=== PATIENT | male | born 1995 | race Caucasian/White ===

== ENCOUNTER 2017-10-06 14:51 | Inpatient (IN) | payer OTHER ==
--- NOTE | 2017-10-06 14:49 | EDPHY ---
H & P HPI/ROS: CHIEF COMPLAINT: Altered mental status HISTORY OF PRESENT ILLNESS: The patient is a 22 y/o male arriving via [facility] as a LTA, in a C-collar for altered mental status after a ski accident. [employer] hide and skin classer found the patient wearing a helmet, down near a tree. The accident was unwitnessed. He appeared to have right wrist pain and he was placed in a right arm splint for this pain. There is blood in his right ear and a laceration behind that ear. It is unclear if the blood is solely from the laceration. EMS was able to wake the patient by verbal and painful stimuli. 25mcg Fentanyl and 4mg Zofran administered while en route to the ED. Patient's mother provided past medical history. REVIEW OF SYSTEMS: A ten point review of systems was performed and is negative with the exception of the items mentioned in the HPI. Past medical history: 1. Childhood asthma 2. No history of head injury. Past surgical history: Denies Family history: Denies Social history: Works in [place], parents live in [place] General: Cervical collar in place. Lani Coma Score is 10. Head: Normocephalic/atraumatic. No Diamond's sign. No raccoon eyes. Neck: Trachea is midline. Nexus criteria are positive (midline tenderness, and focal neurologic deficits noted). Cervical collar left in place. Eyes: PERRLA. EOMI. No subconjunctival hemorrhage. Ears nose and throat: Linear laceration behind behind right pinna. 0.5cm linear laceration inside right pinna. Left tympanic membrane normal. Unable to visualize right tympanic membrane. Nares are patent and without clotted nasal blood. No dental injury or malocclusion. Airway is patent. Lungs: No rib tenderness, crepitus, or subcutaneous emphysema. Breath sounds are equal and audible bilaterally. No wheezes, rales, or rhonchi. Cardiac: Heart has regular rate and rhythm without murmur, rub, or gallop. Abdomen: Soft, nontender, and nondistended. No guarding or rebound. Bowel sounds are present. Back: No vertebral tenderness. No step-off. Skin: No ecchymoses. Skin is warm and dry. Extremities: Right wrist tenderness. Pelvis is stable. Hips are nontender. Pulses: 2+ femoral and dorsalis pedis pulses bilaterally. Neuro: Eye opening to voice. Incomprehensible words. Localizes pain. GCS 10. PERRL. Moving all 4 extremities equally. Constitutional: Initial Vital Signs Temperature (C) 36.4 C 10/06/17 15:00 Heart Rate 68 10/06/17 15:00 Respiratory Rate 16 10/06/17 15:00 Blood Pressure 137/74 H 10/06/17 15:00 O2 Sat (%) 96 10/06/17 15:00 O2 Delivery Mode Room Air Allergies/Adverse Reactions: No Known Allergies Allergy (Verified 10/06/17 16:25) Home Medications: Medication Instructions Recorded NK [No Known Home Meds] 10/06/17 Medical Decision Making - Diagnostics Imaging Results: Imaging Impressions Cervical Spine CT 10/06/17 14:56 Impression: 1. No evidence for acute intracranial abnormality. 2. Mild nonspecific fluid in the right mastoid air cells. No definite fracture through the mastoid. Fluid in the right external auditory canal. 3. Air-fluid levels in the left maxillary and left sphenoid sinus. A definite fracture is not visualized or this could be secondary to sinusitis. CT Cervical Spine Without Contrast History: Trauma. Technique: 1.5 mm helical images were obtained of the cervical spine without contrast. Multiplanar reformation was performed. Radiation dose reduction technique was utilized. Findings: There is an ununited posterior arch of C1, as a normal variant. No evidence for a cervical spine fracture. No significant spondylolisthesis. No evidence for prevertebral soft tissue swelling. No significant spinal canal or neural foraminal encroachment. Impression: No evidence for a cervical spine fracture. Results discussed with Dr. Jailyn Flynn at [address] 10/06/17 14:56 Impression: 1. No evidence for acute intracranial abnormality. 2. Mild nonspecific fluid in the right mastoid air cells. No definite fracture through the mastoid. Fluid in the right external auditory canal. 3. Air-fluid levels in the left maxillary and left sphenoid sinus. A definite fracture is not visualized or this could be secondary to sinusitis. CT Cervical Spine Without Contrast History: Trauma. Technique: 1.5 mm helical images were obtained of the cervical spine without contrast. Multiplanar reformation was performed. Radiation dose reduction technique was utilized. Findings: There is an ununited posterior arch of C1, as a normal variant. No evidence for a cervical spine fracture. No significant spondylolisthesis. No evidence for prevertebral soft tissue swelling. No significant spinal canal or neural foraminal encroachment. Impression: No evidence for a cervical spine fracture. Results discussed with Dr. Jailyn Flynn at [address] 10/06/17 14:57 Impression: Patchy opacification in the right lung with ground-glass opacity. With history of trauma this could be pulmonary contusion. No evidence for pleural effusion or pneumothorax. Consideration could also be made for nonspecific pneumonitis. CT Thoracic Spine With IV Contrast History: Trauma. Technique: 1.5 helical images were obtained of the thoracic spine postintravenous contrast with 90 mL Isovue-300 contrast. Multiplanar reformation was performed. Findings: A couple of degenerative Schmorl's nodes are seen in the endplates of several thoracovertebral bodies. No evidence for acute fracture. No significant spondylolisthesis. No significant spinal canal or neural foraminal encroachment. Impression: No evidence for thoracic spine fracture. Results called to Dr. Jailyn Flynn at [address] 10/06/17 14:57 Impression: Grade 2 to grade 3 laceration in the midpole anteriorly right kidney. Perirenal hematoma. CT Lumbar Spine With IV Contrast History: Trauma. Technique: 1.5 mm helical images were obtained of the lumbar spine postintravenous contrast with 90 mL Isovue-300 contrast. Dedicated reformatted imaging was obtained of the lumbar spine. Radiation dose reduction technique was utilized. Findings: There is bilateral spondylolysis at L5 with sclerosis and cortical margins indicating chronicity. There is grade 1 anterior spondylolisthesis of L5 on S1. Degenerative endplate change is seen at L5-S1 with disk height narrowing. Cortical irregularity and height loss with sclerosis is seen at the posterior inferior vertebral body of L1 with a degenerative pattern adjacent to the degenerative endplate change and degenerative disk disease at this level. No findings to suggest acute fracture of the lumbar spine. Broad-based annular bulge at L5-S1 with severe bilateral neural foraminal narrowing. Broad-based annular bulge at L4-L5 with mild bilateral neural foraminal narrowing. 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 Degenerative disk disease at L5-S1 that with the anterior spondylolisthesis is causing severe bilateral neural foraminal narrowing. There is also early degenerative disk disease at L4-L5. No evidence for acute fracture of the lumbar spine. Results discussed with Dr. Jailyn Flynn on 06 October 2016 at [address] 10/06/17 14:57 Impression: Patchy opacification in the right lung with ground-glass opacity. With history of trauma this could be pulmonary contusion. No evidence for pleural effusion or pneumothorax. Consideration could also be made for nonspecific pneumonitis. CT Thoracic Spine With IV Contrast History: Trauma. Technique: 1.5 helical images were obtained of the thoracic spine postintravenous contrast with 90 mL Isovue-300 contrast. Multiplanar reformation was performed. Findings: A couple of degenerative Schmorl's nodes are seen in the endplates of several thoracovertebral bodies. No evidence for acute fracture. No significant spondylolisthesis. No significant spinal canal or neural foraminal encroachment. Impression: No evidence for thoracic spine fracture. Results called to Dr. Jailyn Flynn at [address] 10/06/17 14:58 Impression: Grade 2 to grade 3 laceration in the midpole anteriorly right kidney. Perirenal hematoma. CT Lumbar Spine With IV Contrast History: Trauma. Technique: 1.5 mm helical images were obtained of the lumbar spine postintravenous contrast with 90 mL Isovue-300 contrast. Dedicated reformatted imaging was obtained of the lumbar spine. Radiation dose reduction technique was utilized. Findings: There is bilateral spondylolysis at L5 with sclerosis and cortical margins indicating chronicity. There is grade 1 anterior spondylolisthesis of L5 on S1. Degenerative endplate change is seen at L5-S1 with disk height narrowing. Cortical irregularity and height loss with sclerosis is seen at the posterior inferior vertebral body of L1 with a degenerative pattern adjacent to the degenerative endplate change and degenerative disk disease at this level. No findings to suggest acute fracture of the lumbar spine. Broad-based annular bulge at L5-S1 with severe bilateral neural foraminal narrowing. Broad-based annular bulge at L4-L5 with mild bilateral neural foraminal narrowing. 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 Degenerative disk disease at L5-S1 that with the anterior spondylolisthesis is causing severe bilateral neural foraminal narrowing. There is also early degenerative disk disease at L4-L5. No evidence for acute fracture of the lumbar spine. Results discussed with Dr. Jailyn Flynn on 06 October 2016 at 1535 hours. Wrist X-Ray 10/06/17 15:05 Impression: Comminuted intra-articular moderately displaced and angulated fracture of the distal right radius. Hand X-Ray 10/06/17 15:10 Impression: Comminuted intra-articular fracture of the distal right radius. No other findings for fracture of the right hand. Imaging: Discussed imaging studies w/ call worker Radiologist, I viewed and interpreted images myself Procedures: Procedure: FAST Trauma ultrasound. Limited transthoracic ultrasound was performed and interpreted by myself for the indication of: chest trauma utilizing the thoracoabdominal emergency ultrasound protocol. The pericardium was visualized and found to be negative for pericardial fluid. Limited abdominal ultrasound for blunt abdominal trauma. 1) The right upper quadrant was visualized and was found to be negative for intraperitoneal fluid. 2) The left upper quadrant was visualized and found to be negative for intraperitoneal fluid. Limited pelvic ultrasound was conducted for abdominal trauma. The bladder was visualized and did [not reveal] an anechoic area outside of the adjacent urinary bladder. Bladder was [distended with urine.] The study was felt to be negative for free intraperitoneal fluid The procedure was performed by myself, Dr. Flynn Not all images were saved. Procedure: Splint placement. An orthoglass sugar tong splint was applied to the right wrist by the emergency department groundwater monitoring technician. After application of the splint I returned and re- examined the patient. The splint was adequately immobilizing the joint and distal to the splint the patient's circulation was intact. Sensory testing not possible due to his altered mental status. ED Course/Re-evaluation: The patient is a 22 y/o male arriving via [facility] as an LTA, in a C-collar for altered mental status after a ski accident. [employer] hide and skin classer found the patient unconscious wearing a helmet, down near a tree, and he is presumed to have hit a tree. On exam patient has eye opening to voice, incomprehensible words, and localizes pain; GCS 10. Full trauma activation was Full trauma work up ordered including head, abdominopelvic CT, Fast US, right arm x-ray's, and labs. 1450: Met [facility] on arrival 1457: Patient is now a full trauma due to altered mental status. 1455: Negative limited FAST US preformed. 1504: Dr. Lopez, trauma surgeon, arrived. RT arrived. Imaging arrived. 1511: I-Stat reviewed, within normal limits. 1524: 100mcg IV Fentanyl and 1L IV NS administered. 1525: I reviewed patient's head and neck CT; they reveal no acute injury. 1530: Reassessed patient; behavioral health case manager spoke with the patient's mother who reports the patient is not on any medications and has no history of head injury. 1537: Spoke with Dr. Baires, radiologist, he reports the abdominopelvic CT reveals a 1.5 cm right renal laceration, with a probable rasheed-renal hematoma. 1541: Reassessed patient. X-ray reveals the patient's right distal radius fracture involving the articular surface that is comminuted and mildly displaced. 1615: Reassessed patient, his friend is now at bedside. Patient's vital signs are stable. I can now visualize a 0.5cm superficial linear laceration inside his right pinna. 1640: Sugar-tong ortho glass splint will be placed on right wrist for mobilization. This fracture will likely require surgery. Patient will be admitted to the ICU with closed head injury, right distal radius fracture, right ear swelling and superficial lacerations, and right renal laceration. Differential Diagnosis: I considered a differential diagnosis of traumatic injury that includes but is not limited to intracranial hemorrhage, skull fracture, concussion, vertebral injury, spinal cord injury, intrathoracic injury, intra-abdominal injury, long bone fractures, contusions, abrasions, and lacerations. Critical Care Time: I spent a total of 45 minutes of critical care time in obtaining history, performing a physical exam, bedside monitoring of interventions, collecting and interpreting tests and discussion with consultants but not including time spent performing procedures. Patient was at risk of neurologic deterioration. - Data Points Laboratory Results: Laboratory Results 10/06/17 15:09 10/06/17 15:09 10/06/17 10/06/17 10/06/17 16:10 15:09 15:09 WBC RBC Hgb POC Hgb Hct POC Hct MCV MCH MCHC RDW Plt Count MPV Neut % (Auto) Lymph % (Auto) Bell % (Auto) Eos % (Auto) Baso % (Auto) Nucleat RBC Rel Count Absolute Neuts (auto) Absolute Lymphs (auto) Absolute Monos (auto) Absolute Eos (auto) Absolute Basos (auto) Absolute Nucleated RBC Immature Gran % Immature Gran # PT INR APTT POC Sodium Sodium 143 mEq/L mEq/L (134-144) POC Potassium Potassium 4.2 mEq/L mEq/L (3.5-5.2) POC Chloride Chloride 103 mEq/L mEq/L (97-110) Carbon Dioxide 23 mEq/l mEq/l (22-31) Anion Gap 17 mEq/L H mEq/L (8-16) POC BUN BUN 15 mg/dL mg/dL (7-23) Creatinine 1.0 mg/dL mg/dL (0.7-1.3) POC Creatinine Estimated GFR > 60 Glucose 121 mg/dL H mg/dL (70-100) POC Glucose Calcium 9.8 mg/dL mg/dL (8.5-10.4) Urine Color YELLOW Urine Appearance HAZY Urine pH 5.0 (5.0-7.5) Ur Specific Bud 1.033 H (1.002-1.030) Urine Protein 2+ H (NEGATIVE) Urine Ketones 2+ H (NEGATIVE) Urine Blood 3+ H (NEGATIVE) Urine Nitrate NEGATIVE (NEGATIVE) Urine Bilirubin NEGATIVE (NEGATIVE) Urine Urobilinogen NEGATIVE EU EU (0.2-1.0) Ur Leukocyte Esterase NEGATIVE (NEGATIVE) Urine RBC 50-182 /hpf H /hpf (0-3) Urine WBC 10-15 /hpf H /hpf (0-3) Ur Epithelial Cells NONE SEEN /lpf /lpf (NONE-1+) Granular Casts 5-15 /lpf /lpf (0-1) WBC Casts 5-15 /lpf /lpf (NONE SEEN) Urine Glucose NEGATIVE (NEGATIVE) Urine Opiates Screen NEGATIVE (NEGATIVE) Urine Barbiturates NEGATIVE (NEGATIVE) Ur Phencyclidine Scrn NEGATIVE (NEGATIVE) Ur Amphetamine Screen NEGATIVE (NEGATIVE) U Benzodiazepines Scrn NEGATIVE (NEGATIVE) Urine Cocaine Screen NEGATIVE (NEGATIVE) U Marijuana (THC) Screen NEGATIVE (NEGATIVE) Ethyl Alcohol < 10 mg/dL mg/dL (0-10) Patient ABO/Rh A POSITIVE Antibody Screen NEGATIVE Crossmatch IS Only See Detail 10/06/17 10/06/17 10/06/17 15:09 15:09 15:01 WBC 21.28 10^3/uL H 10^3/uL (3.80-9.50) RBC 5.12 10^6/uL 10^6/uL (4.40-6.38) Hgb 16.1 g/dL g/dL (13.7-17.5) POC Hgb 16.3 gm/dL gm/dL (13.7-17.5) Hct 45.5 % % (40.0-51.0) POC Hct 48 % % (40-51) MCV 88.9 fL fL (81.5-99.8) MCH 31.4 pg pg (27.9-34.1) MCHC 35.4 g/dL g/dL (32.4-36.7) RDW 12.5 % % (11.5-15.2) Plt Count 229 10^3/uL 10^3/uL (150-400) MPV 10.3 fL fL (8.7-11.7) Neut % (Auto) 87.1 % H % (39.3-74.2) Lymph % (Auto) 5.5 % L % (15.0-45.0) Bell % (Auto) 5.4 % % (4.5-13.0) Eos % (Auto) 0.4 % L % (0.6-7.6) Baso % (Auto) 0.3 % % (0.3-1.7) Nucleat RBC Rel Count 0.0 % % (0.0-0.2) Absolute Neuts (auto) 18.55 10^3/uL H 10^3/uL (1.70-6.50) Absolute Lymphs (auto) 1.16 10^3/uL 10^3/uL (1.00-3.00) Absolute Monos (auto) 1.15 10^3/uL H 10^3/uL (0.30-0.80) Absolute Eos (auto) 0.09 10^3/uL 10^3/uL (0.03-0.40) Absolute Basos (auto) 0.06 10^3/uL 10^3/uL (0.02-0.10) Absolute Nucleated RBC 0.00 10^3/uL 10^3/uL (0-0.01) Immature Gran % 1.3 % H % (0.0-1.1) Immature Gran # 0.27 10^3/uL H 10^3/uL (0.00-0.10) PT 14.7 SEC SEC (12.0-15.0) INR 1.13 (0.83-1.16) APTT 24.0 SEC SEC (23.0-38.0) POC Sodium 141 mEq/L mEq/L (134-144) Sodium POC Potassium 3.7 mEq/L mEq/L (3.3-5.0) Potassium POC Chloride 102 mEq/L mEq/L (97-110) Chloride Carbon Dioxide Anion Gap POC BUN 16 mg/dL mg/dL (7-23) BUN Creatinine POC Creatinine 1.0 mg/dL mg/dL (0.7-1.3) Estimated GFR Glucose POC Glucose 129 mg/dL H mg/dL (70-100) Calcium Urine Color Urine Appearance Urine pH Ur Specific Bud Urine Protein Urine Ketones Urine Blood Urine Nitrate Urine Bilirubin Urine Urobilinogen Ur Leukocyte Esterase Urine RBC Urine WBC Ur Epithelial Cells Granular Casts WBC Casts Urine Glucose Urine Opiates Screen Urine Barbiturates Ur Phencyclidine Scrn Ur Amphetamine Screen U Benzodiazepines Scrn Urine Cocaine Screen U Marijuana (THC) Screen Ethyl Alcohol Patient ABO/Rh Antibody Screen Crossmatch IS Only Medications Given: Acetaminophen (Tylenol) 325 - 650 mg PO Q4HRS PRN PRN Reason: Pain, Mild Able to Take PO Stop: 04/04/18 16:42 Last Admin: 10/06/17 19:48 Dose: 650 mg Hydrocodone Bitart/Acetaminophen (Petroleum 5/325) 1 - 2 tab PO Q4HRS PRN PRN Reason: Pain, Moderate Able to Take PO Stop: 10/16/17 16:42 Last Admin: 10/06/17 20:24 Dose: 1 tab Famotidine/Sodium Chloride (Pepcid 20 Mg (Premix)) 50 mls @ 200 mls/hr IV Q12HRS VANESSA Stop: 04/04/18 20:59 Last Admin: 10/06/17 19:49 Dose: 50 mls Discontinued Medications Fentanyl (Sublimaze) 100 mcg IVP ONCE ONE Stop: 10/06/17 16:25 Last Admin: 10/06/17 16:24 Dose: 100 mcg Point of Care Test Results: 10/06/17 15:01 POC Sodium 141 POC Potassium 3.7 POC Chloride 102 POC BUN 16 POC Creatinine 1.0 POC Glucose 129 H Departure - Departure Disposition: [facility] Inpatient Acute Clinical Impression: Right wrist fracture Qualifiers: Encounter type: initial encounter Fracture type: closed Qualified Code(s): S62.101A - Fracture of unspecified carpal bone, right wrist, initial encounter for closed fracture Closed head injury Qualifiers: Encounter type: initial encounter Qualified Code(s): S09.90XA - Unspecified injury of head, initial encounter Kidney laceration Qualifiers: Encounter type: initial encounter Laterality: right Qualified Code(s): S37.031A - Laceration of right kidney, unspecified degree, initial encounter Laceration of ear Qualifiers: Encounter type: initial encounter Laterality: right Qualified Code(s): S01.311A - Laceration without foreign body of right ear, initial encounter Condition: Serious Report Scribed for: Jailyn Flynn Report Scribed by: Danette Cisneros Date of Report: 10/06/17 Time of Report: 14:57
[2017-10-06] MEDS ORDERED: IOPAMIDOL (ISOVUE-300) 100 ML BTL ONE (15:08)
[2017-10-06 15:16] LABS: PLATELET COUNT 229 10^3/uL (150-400)
[2017-10-06] MEDS ORDERED: fentaNYL 100 MCG/2 ML INJ ONE (15:19)
[2017-10-06 15:27] LABS: INR 1.13 (0.83-1.16); PROTIME(PATIENT) 14.7 SEC (12.0-15.0)
[2017-10-06] MEDS ORDERED: fentaNYL 100 MCG/2 ML INJ IVP ONE (16:24)
[2017-10-06] MEDS ORDERED: NALOXONE HCL 0.4 MG/ML INJ IVP PRN (16:43)
[2017-10-06] MEDS ORDERED: HYDROmorphONE/DILAUDID 1 MG/ML INJ IVP PRN (16:43)
[2017-10-06] MEDS ORDERED: ONDANSETRON 4 MG/2 ML VIAL IVP PRN (16:43)
--- NOTE | 2017-10-06 17:10 | ASMTCMCOM ---
CM Note CM Note Notes: Patient presented to the ED via [facility] helicopter from [place] as a Limited Trauma; patient was upgraded to FULL Trauma Activation after arrival to ED. Patient presented with AMS and was only able to tell us his first name. Patient admitted for AMS, right kidney laceration, and right wrist fracture. Patient had been found minimally responsive in the trees by a friend and coworker, Casey Rodriges ([phone]) and ski production supervisor. Patient had an unwitnessed skiing accident, possibly skier vs. tree; pt was helmeted. Spoke with patient's mother Jennifer Abreu ([phone]) who lives in [place]. Jennifer states patient lives in [place] and works at [employer]. Patient has no significant PMH and is generally active and healthy. Jennifer states she and patient's father are flying out of [facility] and will arrive in [place] around 10:30pm. Jennifer has [facility] location and main #. Jennifer updated on patient's status and all questions at that time were answered. Exact DC needs unknown. Anticipate PT/OT/INVOICE CLERK to eval once medically stable. CM to follow. Date Signed: 10/06/2017 05:10 PM Electronically Signed By:Leeanne Mata RN
--- NOTE | 2017-10-06 17:38 | GHP ---
[f rep st] HISTORY AND PHYSICAL DATE OF ADMISSION: 10/06/2017 CHIEF COMPLAINT: Ski accident. HISTORY OF PRESENT ILLNESS: This is a 22-year-old male, who was transported to [facility] Emergency Department via Flight for 5 Minutes with an apparent ski accident. Per report, the patient was found [place] on [address] next to a tree with an apparent ski accident, helmeted, at that point unconscious. He was subsequently brought down by skiver uppers or linings. He was breathing but he was not following commands at that point in time. He was subsequently transported here by [facility] [address]. On arrival here he was made a trauma activation and I greeted the patient in the trauma bay. Upon greeting him he opened his eyes to command. He was able to tell me his name but was unaware of any of the events that led to his injuries. He was also unaware of where he was at that point. He complained of right-sided shoulder pain. He was protecting his airway, his breathing was normal and unlabored and he had adequate circulation at that point in time. We left the cervical collar in place. The remainder of his primary exam was completed and we subsequently took him to imaging as the patient, other than providing his name, was unable to participate in the remainder of the examination. He was moving all extremities and was otherwise neuro intact. PAST MEDICAL HISTORY: None other than childhood asthma, per mother via phone PAST SURGICAL HISTORY: He had a knee surgery a few years back. No abdominal surgeries, per mother via phone FAMILY HISTORY: Noncontributory. MEDICATIONS: None, per mother via phone ALLERGIES: None, per mother via phone REVIEW OF SYSTEMS: Unobtainable. PHYSICAL EXAM: VITAL SIGNS: Temperature 36.4, heart rate 68, blood pressure 137/74, and he is 96% on room air. CONSTITUTIONAL: He is in mild distress. He is uncomfortable with manipulation of his right upper extremity. He otherwise has no complaints. EYES: His pupils are equal, round, and reactive to light and accommodation. He has normal extraocular movements. He has anicteric sclerae. EARS, NOSE, MOUTH AND THROAT: He has moist mucous membranes. His hearing appears normal. He does have blood within his right ear , a laceration on the external portion of his ear, it is unclear whether or not he has a laceration internally but the blood does appear old and dried. CARDIOVASCULAR: He has a regular rate and rhythm without murmurs, rubs, or gallops. RESPIRATORY: He has no respiratory distress, rales, rhonchi, crepitus and he is otherwise clear to auscultation bilaterally. GI: He has normoactive bowel sounds. ABDOMEN: Soft, nondistended, nontender without any palpable masses. SKIN: He has no appreciable lacerations other than the one behind his right ear. His skin is otherwise warm, normal color, without abrasions. MUSCULOSKELETAL: He has full muscle strength. No tenderness with normal joint range of motion. NEUROLOGIC: He is alert and oriented x1. His cranial nerves 2-12 do appear intact. He does not appreciate any weakness, numbness. PSYCHIATRIC: He opens his eyes to command. His GCS is 10. He does not appear anxious although he is amnestic to the event. LYMPH, HEME AND IMMUNOLOGIC: No cervical, groin or appreciable lymphadenopathy identified. MEDICAL DECISION MAKING: Elevated leukocytosis to 21,000. Hemoglobin and hematocrit stable at 16 and 45. Coags are normal with an INR of 1.13. Chemistry is largely unremarkable with the exception of an elevated glucose at 121. Toxicology is negative. Urine shows 3+ blood, 2+ ketones. Urine red cells currently pending. A king scan of images were performed including CT head , C-spine, chest, abdomen, and pelvis with T and L-spine recons as well as shoulder and right hand and wrist x-rays. All of these images were personally reviewed. The only identifiable injuries include a distal right radius fracture and a grade 2 kidney laceration without extravasation or collecting duct injury without any pneumoperitoneum free fluid within the abdomen. ASSESSMENT AND PLAN: A 22-year-old male, status post skiing accident, helmeted with concussion, distal right radius fracture and a grade 2 renal laceration. Because of the patient's mental status, he will be admitted to the intensive care unit for neuro monitoring. I anticipate that he will continue to clear but does clinically have a significant concussion at this point in time, without any identifiable injury on CT scan imaging. In addition to that, I have consulted the orthopedist who will evaluate the patient's distal right radius fracture. In the meantime, we will have him splinted in the emergency department prior to admission. We will plan to clinically clear his collar when he is mentally appropriate to cooperate with clearance. His right renal laceration appears stable without active extravasation. His urine is pink tinged currently but not significantly bloody at this point in time. He will have consultation from physical therapy, occupational therapy and a cognitive evaluation prior to discharge. We will continue Villanueva catheterization until it clears and he is more appropriate to participate with examination. Anticipate that he will be here at least 2 midnights for monitoring. His family, back in [facility], has been contacted and will arrive tonight. /[id number]/MODL MTDD
--- NOTE | 2017-10-06 18:24 | TRAUMAPN ---
Assessment/Plan: C collar cleared Objective: Vital Signs Temp Pulse Resp BP Pulse Ox 36.8 C 82 16 118/71 100 10/06/17 17:30 10/06/17 17:30 10/06/17 17:30 10/06/17 17:30 10/06/17 17:30 10/05/17 10/06/17 10/07/17 05:59 05:59 05:59 Intake Total 1000 Output Total 600 Balance 400 PT 14.7 SEC (12.0-15.0) 10/06/17 15:09 INR 1.13 (0.83-1.16) 10/06/17 15:09
[2017-10-06] MEDS: ACETAMINOPHEN 325 MG TAB PO PRN ×2 (19:48→23:53)
[2017-10-06] MEDS: FAMOTIDINE 20 MG/NACL 50 ML IV SCH (19:49)
[2017-10-06] MEDS: HYDROCODONE/APAP 5/325 TAB PO PRN (20:24)
--- NOTE | 2017-10-06 22:09 | SOAPPROG ---
SOAP Progress Note Assessment/Plan: Assessment: HPI: 22 year old male s/p skiing accident earlier today (10/06/17) with LOC and fall onto outstretched RUE. He was brought to the [facility] ED where he was found to have a right distal radius fracture. He was splinted and admitted to the trauma service for observation. He denies any numbness or tingling in his RUE. PE: Gen: NAD AVSS CV: RRR Pulm: CTAB RUE: Splint CDI +EDC, EPL, FPL, FDS, FDP, FDP-I, DI, PI +M/R/U SILT 2+ radial and ulnar pulses Right wrist radiographs: right distal radius fracture, intra-articular, slightly increased dorsal tilt Assessment and Plan 22 year old male s/p a right distal radius fracture after skiing accident earlier today (10/06/17) -Leave current splint in place and keep clean, dry, and intact -Strict NWB on RUE -Elevate RUE -FU as an outpatient after discharge from hospital -Full consult note to follow 10/06/17 22:05 Objective: Vital Signs Temp Pulse Resp BP Pulse Ox 36.8 C 88 18 108/55 L 100 10/06/17 17:30 10/06/17 21:00 10/06/17 21:00 10/06/17 21:00 10/06/17 21:00 10/05/17 10/06/17 10/07/17 05:59 05:59 05:59 Intake Total 1000 Output Total 600 Balance 400 PT 14.7 SEC (12.0-15.0) 10/06/17 15:09 INR 1.13 (0.83-1.16) 10/06/17 15:09 ICD10 Worksheet Patient Problems: Problems Problem Status Onset Altered mental status Acute Right wrist fracture Acute
--- NOTE | 2017-10-06 23:59 | GCON ---
[f rep st] CONSULTATION ORTHOPEDIC CONSULTATION NOTE DATE OF CONSULTATION: 10/06/2017 HISTORY OF PRESENT ILLNESS: The patient is a very pleasant 22-year-old male, who was involved in a s kiing accident earlier today sustaining a right distal radius fracture, which was complete with intra -articular extension and slightly increased dorsal tilt. He was seen in the [facility] rt[facility] where he was placed in a sugar-tong splint. ASSESSMENT AND PLAN: A 22-year-old male with a right distal radius fracture. He will remain in his current splint and keep it clean, dry, and intact. He will be strict nonweightbearing of his right upper extremity. Elevate right upper extremity. Follow up as an outpatient after the patient is discharged from the hospital for repeat radiographs o f his right wrist. /[id number]/MODL
[2017-10-07] MEDS: FAMOTIDINE 20 MG/NACL 50 ML IV SCH (09:41)
[2017-10-07] MEDS: HYDROCODONE/APAP 5/325 TAB PO PRN (09:42)
[2017-10-07 17:54] VITALS: BP 118/72; PULSE 75; RESP 20; TEMP 98.6; O2SAT 96
--- NOTE | 2017-10-07 18:33 | GDS ---
[f rep st] DISCHARGE SUMMARY PRESENT ILLNESS: The patient was admitted the day prior after being involved in a ski accident where he sustained a concussion, as well as a right renal contusion with perinephric blood, and a right di stal radius fracture. HOSPITAL COURSE: The patient's mental status cleared such that he appeared clinically normal without any postconcussive symptoms. His hematocrit was checked several times and was stable, currently 41 minute. He had a sugar-tong splint placed on the right arm by Dr. Her. It was felt reasonable to send him home with followup with both Dr. Post and Dr. Her. FINAL DIAGNOSES: Fall while skiing with concussion, grade 2 right renal contusion, distal right radi us fracture. DISPOSITION: Home. FOLLOWUP: With both physicians in a week. The patient declines a narcotic prescription. /[id number]/MODL
--- NOTE | 2017-10-08 15:40 | ASDISCHSUM ---
Discharge Information Plan Status:Home with No Needs Medically Cleared to Leave:10/06/2017 Discharge Date:10/07/2017 05:56 PM CM D/C Disposition:Home, Routine, Self-Care ADT D/C Disposition:Home, Routine, Self-Care Projected Discharge Date:10/07/2017 06:00 PM Transportation at D/C:Family Discharge Delay Reason: Follow-Up Date:10/07/2017 06:00 PM Discharge Slot: Final Diagnosis:Ski accident: CHI, wrist fx, kidney lac and ear lac Placement Information Patient Contact Information Contact Name:POOL Relationship:Mother Address: Work Phone: City: [facility] Phone: State/[place] Code: Email: Financial Information Financial Class:Self-Pay Primary Plan Desc:SELF PAY Primary Plan Number: Secondary Plan Desc: Secondary Plan Number: Assessment Information [facility] CM Progress Note CM Note CM Note Notes: Patient presented to the ED via [facility] helicopter from [place] as a Limited Trauma; patient was upgraded to FULL Trauma Activation after arrival to ED. Patient presented with AMS and was only able to tell us his first name. Patient admitted for AMS, right kidney laceration, and right wrist fracture. Patient had [place] by a friend and coworker, Casey Rodriges ([phone]) and construction skills teacher. Patient had an unwitnessed skiing accident, possibly skier vs. tree; pt was helmeted. Spoke with patient's mother Jennifer Abreu ([phone]) who lives in [place]. Jennifer states patient lives in [place] and works at [employer]. Patient has no significant PMH and is generally active and healthy. Jennifer states she and patient's father are flying out of [facility] and will arrive in [place] around 10:30pm. Jennifer has [facility] location and main #. Jennifer updated on patient's status and all questions at that time were answered. Exact DC needs unknown. Anticipate PT/OT/PLANT AND MAINTENANCE TECHNICIAN to eval once medically stable. CM to follow. Date Signed: 10/06/2017 05:10 PM Electronically Signed By:Leeanne Mata RN Case Management Discharge Plan Note Case Management Discharge Discharge Order Complete? Answers: Yes Patient to Obtain Answers: via Family Medications Transportation Arranged Answers: Family/Friends Transport will Pick (Date 10/07/2017 06:00 PM & Time) Family Notified Answers: Yes Notes: Family to transport Discharge Comments Notes: Patient up walking with therapy, cleared by therapy, to be discharged. To f/u w/surgeon in 1 wk. Lives in [place], needs to find a PCP. Parents to assist. No other needs. Date Signed: 10/07/2017 05:59 PM Electronically Signed By:Elle Rousseau LCSW Intervention Information
== END 2017-10-07 17:56 | disposition home or self-care (01) | DRG 89 ==
LOC: F2N 17:16
PROVIDERS: ADMIT Surgery; ATTEND Surgery
PROC: 2W3CX1Z Immobilization of Right Lower Arm using Splint (ICD-10-PCS; principal; 2017-10-06)
DX: S06.0X9A Concussion with loss of consciousness of unspecified duration, initial encounter (principal); S52.571A Other intraarticular fracture of lower end of right radius, initial encounter for closed fracture; S37.051A Moderate laceration of right kidney, initial encounter; S37.011A Minor contusion of right kidney, initial encounter; S01.311A Laceration without foreign body of right ear, initial encounter; R40.2422 Glasgow coma scale score 9-12, at arrival to emergency department; R40.2421 Glasgow coma scale score 9-12, in the field [EMT or ambulance]; V00.321A Fall from snow-skis, initial encounter; M25.511 Pain in right shoulder; Y93.23 Activity, snow (alpine) (downhill) skiing, snowboarding, sledding, tobogganing and snow tubing; Y92.828 Other wilderness area as the place of occurrence of the external cause; Y99.8 Other external cause status; M51.37 Other intervertebral disc degeneration, lumbosacral region; M43.16 Spondylolisthesis, lumbar region
CPT/HCPCS: 80305; 82947-QW; 92523-GN; 96374; 97161-GP; 97165-GO; A4565; G0480; J3010; L3908; Q9967